=== PATIENT | female | born 1965 | race Caucasian/White ===

== ENCOUNTER 2018-12-28 00:34 | Emergency (ER) | payer SELFPAY ==
[~2018-12-28] VITALS: Ht 165.1 cm; Wt 72.7 kg
[~2018-12-28 00:34] MED LIST: HYDR-4011 PO
[2018-12-28 00:36] VITALS: BP 170/100; PULSE 84; RESP 19; Ht 165.1 cm; Wt 72.7 kg
[2018-12-28] MEDS ORDERED: ACETAMINOPHEN 325 MG TAB PO STA (01:19)
--- NOTE | 2018-12-28 01:22 | ERD ---
ER Documentation Chief Complaint Chief Complaint [id number]; FINK X1HR; NO NEURO DEFECITS HPI 53-year-old female, with history of multiple sclerosis, rheumatoid arthritis and breast cancer, presents to the emergency department, brought in by ambulance after experiencing a sudden onset of severe headache, worse in the right side, associated with dizziness and chest pain. No history of previous episodes, the pain is 7/10, she denies distal weakness, no seizure activity, no blurred vision, no nausea or vomiting. No reports of fever or chills, no upper respiratory symptoms, no abdominal pain. ROS All systems reviewed and are negative except as per history of present illness. Medications Home Meds Active Scripts Hydrocodone/Acetaminophen ([place] 5-325 Tablet) 1 Each Tablet, 1 TAB PO BID PRN for PAIN, #10 TAB Prov:MELISA ALMANZAR MD 12/28/18 Allergies Allergies: Coded Allergies: zolpidem (Verified Allergy, Unknown, 12/28/18) PMhx/Soc History of Surgery: Yes (BREAST, HYSTERECTOMY ) Hx Cardiac Disorders: No Hx Psychiatric Problems: No Hx Miscellaneous Medical Probl: Yes (MS, ARTHRITIS, BREAST CA) Hx Alcohol Use: No Hx Substance Use: No Hx Tobacco Use: No Smoking Status: Never smoker FmHx Family History: No diabetes, No coronary disease Physical Exam Vitals Vital Signs Date Temp Pulse Resp B/P (MAP) Pulse Ox O2 O2 Flow FiO2 Time Delivery Rate 12/28/18 98.6 84 19 170/100 100 00:36 (123) Physical Exam Const: No acute distress Head: Atraumatic Eyes: Normal Conjunctiva ENT: Normal External Ears, Nose and Mouth. Neck: Full range of motion. No meningismus. Resp: Clear to auscultation bilaterally Cardio: Regular rate and rhythm, no murmurs Abd: Soft, non tender, non distended. Normal bowel sounds Skin: No petechiae or rashes Back: No midline or flank tenderness Ext: No cyanosis, or edema Neur: Awake and alert Psych: Normal Mood and Affect Result Diagram: 12/28/18 0209 12/28/18 020 Results 24 hrs Laboratory Tests Test 12/28/18 02:04 12/28/18 02:09 Bedside Urine pH (LAB) 7.0 Bedside Urine Protein (LAB) Negative Bedside Urine Glucose (UA) Negative Bedside Urine Ketones (LAB) Negative Bedside Urine Blood Trace-lysed Bedside Urine Nitrite (LAB) Negative Bedside Urine Leukocyte Esterase (L Negative White Blood Count 7.4 10^3/ul Red Blood Count 4.89 10^6/ul Hemoglobin 13.7 g/dl Hematocrit 40.9 % Mean Corpuscular Volume 83.6 fl Mean Corpuscular Hemoglobin 28.0 pg Mean Corpuscular Hemoglobin Concent 33.5 g/dl Red Cell Distribution Width 12.1 % Platelet Count 267 10^3/UL Mean Platelet Volume 9.9 fl Immature Granulocytes % 0.300 % Neutrophils % 53.2 % Lymphocytes % 39.8 % Monocytes % 5.9 % Eosinophils % 0.0 % Basophils % 0.8 % Nucleated Red Blood Cells % 0.0 /100WBC Immature Granulocytes # 0.020 10^3/ul Neutrophils # 3.9 10^3/ul Lymphocytes # 3.0 10^3/ul Monocytes # 0.4 10^3/ul Eosinophils # 0.0 10^3/ul Basophils # 0.1 10^3/ul Nucleated Red Blood Cells # 0.0 10^3/ul Sodium Level 141 mmol/L Potassium Level 4.0 mmol/L Chloride Level 104 mmol/L Carbon Dioxide Level 26 mmol/L Anion Gap 11 Blood Urea Nitrogen 11 mg/dl Creatinine 0.73 mg/dl Est Glomerular Filtrat Rate mL/min > 60 mL/min Glucose Level 119 mg/dl Calcium Level 10.6 mg/dl Troponin I < 0.012 ng/ml Current Medications Medications Dose Sig/Mushtaq Start Time Status Last (Trade) Ordered Route PRN Stop Time Admin Dose Reason Admin 650 mg ONCE STAT 12/28/18 DC 12/28/18 Acetaminophen PO 01:19 12/28/18 02:04 (Tylenol 01:23 Tab) Morphine 10 mg ONCE ONCE 12/28/18 DC 12/28/18 Sulfate PO 01:30 12/28/18 02:04 (morphine) 01:31 EKG read by me: Rate/Rhythm: Regular rate and rhythm at a rate of 71 Intervals: Normal No acute ST changes. No T wave inversion Impression: No evidence of acute ischemia or arrhythmia Patient: FRED AN : 1965 Age: 53 Sex: F MR #: [id number] DOS: 12/28/18 0119 Ordering MD: MELISA ALMANZAR MD [facility] Room/Bed: PROCEDURE: CT Brain without contrast. CLINICAL INDICATION: Headache TECHNIQUE: A CT of the brain was performed utilizing axial imaging from the skull base through the vertex without IV contrast. Multiplanar reformatted images were made. Images were reviewed on a PACS workstation. CTDIvol: 38.97 mGy DLP: 634.23 mGycm DICOM images are available. One or more of the following dose reduction techniques were utilized: 1.) Automated exposure control 2.) Adjustment of the mA +/- kV according to patient's size 3.) Use of iterative reconstruction technique. COMPARISON: None FINDINGS: CALVARIUM: Regional bones are intact. SINUSES: Paranasal sinuses and mastoid air cells are clear. BRAIN: There is no evidence of intracranial hemorrhage. Prominence of ventricles and cisterns is normal for age. Ryan - white differentiation is preserved and there is no evidence of an acute or subacute territorial infarction. No intracranial mass or mass effect. IMPRESSION: Negative unenhanced head CT. Procedures/MDM Vital signs stable, Physical exam unremarkable, neurovascular exam intact. Differential diagnosis include but not limited to: Classical migraine, sinusitis, visual corrective problems, side effects of medications, dehydration, electrolyte imbalance, endocrine/autoimmune medical condition, stress, anxiety, tension headache. Low suspicion for meningitis, [employer] tumor, cerebrovascular event. Physical examination and clinical presentation consistent most likely with tension headache. CT was requested based on the history of multiple sclerosis and breast cancer. During the ED course the patient remained stable, no new complaints. Results and clinical impression discussed with patient who agrees with management. The patient is stable to be treated outpatient and will be di scharged home, some side effects of prescribed medications (headache, rash, nausea, vomiting, diarrhea, drowsiness, habituation, bleeding, hypertension, interactions with other medications) were reviewed. Follow up with the primary care provider in the next 48h has been recommended. If symptoms persist, worsen or new symptoms develop, then patient should return to the ED immediately. Instructions explained and given directly by me to the patient with acknowledgment and demonstrated understanding. Disclaimer: Inadvertent spelling and grammatical errors are likely due to EHR/dictation software use and do not reflect on the overall quality of patient care. Also, please note that the electronic time recorded on this note does not necessarily reflect the actual time of the patient encounter. Departure Diagnosis: Primary Impression: Headache Condition: Stable Additional Instructions: Thank you very much for allowing us to participate in your care. Your health and safety is our top priority at [facility]. The evaluation in the emergency department has been done to rule out an acute emergency. Chronic, [id number] conditions may have not been evalua emerson; therefore, you need to follow up with a primary care provider in the next 48h. If symptoms persist, worsen or new symptoms develop, then patient should return to the ED immediately. Call your primary care doctor TOMORROW for an appointment during the next 2-4 days and bring all the information provided. Have prescriptions filled and follow precisely the directions on the label. If the symptoms get worse and your provider is unavailable, return to the Emergency Department immediately. MELISA ALMANZAR MD Dec 28, 2018 01:22
[2018-12-28] MEDS ORDERED: morphine LIQ (10 MG/5 ML) CUP PO ONE (01:30)
== END 2018-12-28 03:29 | disposition home or self-care (01) ==
LOC: FTE 00:34
DX: R51 Headache (principal); Z85.3 Personal history of malignant neoplasm of breast
CPT/HCPCS: 36415; 70450; 80048; 81003; 84484; 85025; 93005